=== PATIENT | male | born 1975 | race Caucasian/White ===

== ENCOUNTER 2020-03-04 10:38 | Emergency (ER) | payer MEDICAID ==
[~2020-03-04] VITALS: Ht 172.7 cm; Wt 68.2 kg
[2020-03-04 10:43] VITALS: Ht 172.7 cm; Wt 68.2 kg
[2020-03-04] MEDS ORDERED: VIBRAMYCIN 100100 MG PO (11:20)
[2020-03-04 11:28] LABS: CALC OSMOLALITY 269 mosm/kg (275-300); CALCIUM 8.9 mg/dL (8.5-10.1); CARBON DIOXIDE 28.2 mmol/L (21.0-32.0); CHLORIDE - SERUM 95 mmol/L (98-107); CREATININE - SERUM 0.8 mg/dL (0.6-1.3); GLUCOSE 114 mg/dL (74-106); POTASSIUM - SERUM 3.3 mmol/L (3.5-5.1); SODIUM 136 mmol/L (136-145); UREA NITROGEN 3 mg/dL (7-18); eGFR NON AFRICAN AMERICAN > 90 mL/min (90-120)
[2020-03-04 11:35] LABS: ALKALINE PHOSPHATASE 161 U/L (30-120); ALT (SGPT) 214 U/L (10-68); BILIRUBIN - TOTAL 0.73 mg/dL (0.2-1.3); PROTEIN - SERUM 8.4 g/dL (6.4-8.2)
[2020-03-04 11:40] LABS: BASOPHILS 0.7 % (0-2); HEMATOCRIT 42.3 % (42.0-54.0); HEMOGLOBIN 14.9 g/dL (13.5-17.5); IMMATURE GRANULOCYTES 0.3 % (0-5); LYMPHOCYTES 35.7 % (15-50); MCH 35.9 pg (26.0-34.0); MCHC 35.2 g/dL (31.0-37.0); MCV 101.9 fL (80.0-100.0); MEAN PLATELET VOLUME 9.2 fL (7.4-10.4); NEUTROPHILS 47.3 % (40-80); PLATELET COUNT 133 10x3/uL (130-400); RBC 4.15 10x6/uL (4.20-6.10); RDW 12.2 % (11.5-14.5); WBC 7.6 10x3/uL (4.8-10.8)
[2020-03-04 12:16] VITALS: BP 144/92
== END 2020-03-04 12:17 | disposition home or self-care (01) ==
LOC: D.ER 10:38
PROVIDERS: Family Medicine
DX: L72.3 Sebaceous cyst (principal)